=== PATIENT | female | born 1945 | race Caucasian/White ===

== ENCOUNTER 2017-06-02 18:36 | Emergency (ER) | payer MEDICARE, OTHER ==
[2017-06-02] MEDS ORDERED: ONDANSETRON ODT 4 MG TAB.RAPDIS ONE ×2 (19:32→20:25)
[2017-06-02] MEDS ORDERED: KETOROLAC TROMETHAMINE 30 MG/ML VIAL ONE (19:32)
[2017-06-02] MEDS ORDERED: traMADol HCL 50 MG TABLET PO ONE (20:10)
[2017-06-02] MEDS ORDERED: ONDANSETRON ODT PREPAC 4 MG TAB.RAPDIS PO ONE (20:25)
--- NOTE | 2017-06-02 23:11 | ER PHYSICIAN DOCUMENTATION ---
Physician Documentation [facility] Name:Jennifer Sheikh Age:71 yrs Sex:Female :1945 Arrival Date:06/02/2017 Time:18:36 Bed1 Private MD: Omar Sue Disposition: 06/03 06:57 Chart complete. tl1 Disposition: 06/02/17 19:59 Discharged to Home/Self Care. Impression: Acute Low Back Pain. - Condition is Good. - Discharge Instructions: BACK PAIN (Acute or Chronic). - Prescriptions for Tramadol 50 mg Oral - take 1 tablet by ORAL route every 8 hours as needed; 20 tablet. Zofran 4 mg Oral Tablet - take 1-2 tablet by ORAL route every 4-6 hours As needed; 10 tablet. - Medical Reconciliation form form. - Follow up: Rich Scruggs MD; When: 2 - 3 days; Reason: Recheck today's complaints, Continuance of care. - Problem is new. - Symptoms have improved. HPI: 06/02 18:58 This 71 yrs old Female presents to ER with complaints of Back Pain. tl1 19:00 The patient presents with pain that is acute. The symptoms are located in the low back. tl1 Onset: The symptoms/episode began/occurred suddenly, 5 day(s) ago. The pain radiates down the patient's right lower extremity. Associated signs and symptoms: Pertinent negatives: abdominal pain, constipation, dysuria, hematuria, incontinence, urinary retention, vomiting. The problem was sustained LIFTING A HEAVY BAG OF ICE.. Modifying factors: The patient symptoms are alleviated by remaining still, specific position, sitting, the patient symptoms are aggravated by walking. Historical: - Allergies: No known drug Allergies; - Home Meds: 1. ibandronate oral - PMHx: osteopenia; - Ebola Screening: : Patient negative for fever greater than or equal to 101.5 degrees Fahrenheit, and additional compatible Ebola Virus Disease symptoms. Patient denies exposure to infectious person. Patient denies travel to an Ebola-affected area in the 21 days before illness onset. No symptoms or risks identified at this time. . - Immunization history: Pneumococcal vaccine is not up to date, Flu Vaccine < 1 year. - Social history: Smoking status: Patient states was never smoker of tobacco. Patient/guardian denies using alcohol, street drugs, IV drugs, marijuana. ROS: 19:10 Constitutional: Negative for chills, fever, malaise. tl1 19:10 Back: Positive for injury or acute deformity, decreased range of motion, pain at rest, pain with movement, radiated pain, of the right low back. 19:10 : Negative for urinary symptoms. 19:10 All other systems are negative. Exam: 19:10 Constitutional: The patient appears alert, awake, non-toxic, well developed, well tl1 hydrated, well groomed, well nourished, in obvious distress, moderately distressed, in obvious pain, restless, uncomfortable. 19:10 Head/face: Exam is negative for obvious evidence of injury or deformity. 19:10 Cardiovascular: Rate: normal, Rhythm: regular, Heart sounds: normal. 19:10 Respiratory: Respirations: normal, Breath sounds: are normal. 19:10 Abdomen/GI: Palpation: abdomen is soft and non-tender. 19:10 Back: pain, that is moderate, of the lumbar area and right low back, ROM is painful, decreased, normal spinal alignment noted, CVA tenderness, is absent, that is mild, vertebral tenderness, is not appreciated, muscle spasm, is not present, Straight leg raises: right lower extremity does not illicit pain, left lower extremity does not illicit pain. 19:10 : CVA tenderness, is absent. 19:10 Skin: Exam negative for acute changes. 19:10 Neuro: Cranial nerves: Motor: moves all fours, strength is 5/5 in all extremities, Sensation: no obvious gross deficits, light touch sense is normal, Gait: is steady, without difficulty, Deep tendon reflexes are 2+ (normal) in the right patellar, right Achilles, left patellar and left Achilles. Vital Signs: 19:11 Pulse 67; Resp 18; Temp 97.9; Pulse Ox 93% on R/A; sc1 19:38 BP 192 / 67; Pulse 59; Pulse Ox 93% on R/A; sj 19:47 Pain 5/10; sj 20:01 BP 148 / 59; Pulse 55; Pulse Ox 95% on R/A; Pain 5/10; sj 21:15 BP 155 / 56; Pulse 46; Resp 12; Pulse Ox 83% on R/A; Pain 4/10; sj 22:45 BP 149 / 59; Pulse 61; Resp 13; Pulse Ox 92% on R/A; sj 23:09 BP 144 / 59; Pulse 60; Resp 18; Pulse Ox 94% ; bw2 MDM: 18:58 Patient medically screened. tl1 20:00 Data reviewed: vital signs, nurses notes, EMS record, and as a result, I will discharge tl1 patient. Counseling: I had a detailed discussion with the patient and/or guardian regarding: the historical points, exam findings, and any diagnostic results supporting the discharge/admit diagnosis, the need for outpatient follow up, with the patient's primary care provider. Medication response: The patient's symptoms have improved, Dilaudid. Response to treatment: the patient's symptoms have markedly improved after treatment, and as a result, I will discharge patient. ED course: Pain was well controlled with dilaudid and toradol, but she had persistent vomiting for several hours afterwards, that eventually responded to zofran and compazine. 06/02 21:24 Order name: Oxygen; Complete Time: 21:25 sj Dispensed Medications: 19:22 Drug: Zofran 4 mg; Route: PO; sj 19:47 Follow up: Response: Nausea is decreased sj 19:23 Drug: Dilaudid 2 mg; Route: IM; Site: right gluteus; sj 19:47 Follow up: Response: Pain is decreased sj 19:24 Drug: Toradol 30 mg; Route: IM; Site: left vastus lateralis; sj 19:47 Follow up: Response: Pain is decreased sj 20:16 Drug: Zofran 1 tablet; Route: PO; sj 20:16 Follow up: Response: Pharmacy closed - take home med pack sj 20:16 Drug: Zofran 4 mg; Route: PO; sj 20:16 Follow up: Response: Medication administered at discharge. sj 21:30 Follow up: Response: Nausea unchanged sj 21:24 Drug: Compazine 10 mg; Route: IM; Site: left gluteus; sj 22:05 Drug: NS 0.9% 1000 ml; Route: IV; Rate: bolus; Site: left antecubital; sj 22:46 Follow up: IV Status: Completed infusion; IV Intake: 1000ml Signatures: Ning Valencia RN RN de1 Omar Acuña MD MD 1 Wen Goodson Beth bw2
--- NOTE | 2017-06-02 23:11 | ER NURSING DOCUMENTATION ---
Nurse's Notes [facility] Name:Jennifer Sheikh Age:71 yrs Sex:Female :1945 Arrival Date:06/02/2017 Time:18:36 Bed1 Private MD: Diagnosis:Acute Low Back Pain Presentation: 06/02 18:39 Acuity: ALBERTA 3 sj 19:08 Presenting complaint: Patient states: low back pain radiating down right leg. sc1 Transition of care: Home. Notified ED Physician of patient's arrival and CC Dr. Acuña notified. 19:08 Method Of Arrival: Private Vehicle sc1 Triage Assessment: 19:16 General: Appears uncomfortable, well developed, well nourished, well groomed, Behavior sc1 is cooperative, pleasant. Pain: Complains of pain in low back and right leg. Musculoskeletal: Circulation, motion, and sensation intact Capillary refill < 3 seconds. Historical: - Allergies: No known drug Allergies; - Home Meds: 1. ibandronate oral - PMHx: osteopenia; - Ebola Screening: : Patient negative for fever greater than or equal to 101.5 degrees Fahrenheit, and additional compatible Ebola Virus Disease symptoms. Patient denies exposure to infectious person. Patient denies travel to an Ebola-affected area in the 21 days before illness onset. No symptoms or risks identified at this time. . - Immunization history: Pneumococcal vaccine is not up to date, Flu Vaccine < 1 year. - Social history: Smoking status: Patient states was never smoker of tobacco. Patient/guardian denies using alcohol, street drugs, IV drugs, marijuana. Screenin:17 Infectious Disease Risk None. Abuse screen: Denies threats or abuse. Nutritional sc1 screening: No deficits noted. Assessment: 21:25 Reassessment: pain relieved but continues to vomit despite second zofran po. sj Respiratory rate 6 to 16 with sats down to 76% on RA. Placed on oxygen and compazine IM given.. Vital Signs: 19:11 Pulse 67; Resp 18; Temp 97.9; Pulse Ox 93% on R/A; sc1 19:38 BP 192 / 67; Pulse 59; Pulse Ox 93% on R/A; sj 19:47 Pain 5/10; sj 20:01 BP 148 / 59; Pulse 55; Pulse Ox 95% on R/A; Pain 5/10; sj 21:15 BP 155 / 56; Pulse 46; Resp 12; Pulse Ox 83% on R/A; Pain 4/10; sj 22:45 BP 149 / 59; Pulse 61; Resp 13; Pulse Ox 92% on R/A; sj 23:09 BP 144 / 59; Pulse 60; Resp 18; Pulse Ox 94% ; bw2 ED Course: 18:38 Patient arrived in ED. ma1 18:39 Wen Goodson is Primary Nurse. sj 18:39 Triage completed. sj 18:58 Omar Acuña MD is Attending Physician. tl1 19:16 Notified ED Physician of patient's arrival and chief complaint. Dr. Acuña notified. Arm sc1 band placed on Bed in low position Call Light in Reach Gowned HOB Elevated Side rails up x2. 19:20 Valuables Given to family. Valuables. sj 19:54 Rich Scruggs MD is Referral Physician. tl1 21:20 Cardiac Monitoring On for Nurse Monitoring only. Pulse Ox - RN Monitoring Only. sj 22:12 Inserted peripheral IV: 20 gauge in left antecubital area. Oxygen Oxygen administration sj via nasal cannula @ 2L/min. Administered Medications: 19:22 Drug: Zofran 4 mg; Route: PO; sj 19:47 Follow up: Response: Nausea is decreased sj 19:23 Drug: Dilaudid 2 mg; Route: IM; Site: right gluteus; sj 19:47 Follow up: Response: Pain is decreased sj 19:24 Drug: Toradol 30 mg; Route: IM; Site: left vastus lateralis; sj 19:47 Follow up: Response: Pain is decreased sj 20:16 Drug: Zofran 1 tablet; Route: PO; sj 20:16 Follow up: Response: Pharmacy closed - take home med pack sj 20:16 Drug: Zofran 4 mg; Route: PO; sj 20:16 Follow up: Response: Medication administered at discharge. sj 21:30 Follow up: Response: Nausea unchanged sj 21:24 Drug: Compazine 10 mg; Route: IM; Site: left gluteus; sj 22:05 Drug: NS 0.9% 1000 ml; Route: IV; Rate: bolus; Site: left antecubital; sj 22:46 Follow up: IV Status: Completed infusion; IV Intake: 1000ml sj Intake: 22:46 IV: 1000ml; Total: 1000ml. sj Outcome: 19:59 Discharge ordered by . tl1 20:17 Discharged to home via wheelchair, with family. 20:17 Condition: large emesis just prior to discharge. A second zofran given. 20:17 Instructed on discharge instructions, follow up and referral plans. Demonstrated understanding of instructions, medications, Prescriptions given X 2. 23:10 Patient left the ED. [facility] 06/03 12:58 Discharge F/U Call: Unable to reach: left voicemail: tg Signatures: Kang Ames RN RN tg Ning Valencia, RN RN sc1 Omar Acuña MD MD tl1 Wen Goodson Beth 2 Kandice Burnett [facility]
== END 2017-06-02 23:11 | disposition home or self-care (01) ==
LOC: ER 18:36
DX: M54.5 Low back pain (principal); M54.16 Radiculopathy, lumbar region; R11.10 Vomiting, unspecified; Z79.899 Other long term (current) drug therapy
CPT/HCPCS: 96360; 96372; 99283; 99284; J1170; J1885